=== PATIENT | male | born 1955 | race Caucasian/White ===

== ENCOUNTER 2021-02-16 12:23 | Inpatient (IN) ==
[2021-02-16] MEDS ORDERED: HYDROmorphone 1 MG/ML SYRINGE IV ONE ×2 (12:43→16:17)
[2021-02-16] MEDS ORDERED: ACETAMINOPHEN 1,000 MG/100 ML BAG IV ONE (12:44)
[2021-02-16 13:08] LABS: POC Creatinine 1.2 mg/dL (0.6-1.2)
--- NOTE | 2021-02-16 13:12 | Emergency Department Note ---
Male Urogenital HPI <Valentine Seals PA-C - Last Filed: 02/16/21 18:27> General Chief complaint: Abdominal Pain Stated complaint: Bilateral Flank Pain/Abd. pain Time Seen by Provider: 02/16/21 12:35 Source: patient Mode of arrival: ambulatory Limitations: no limitations History of Present Illness HPI Narrative: This is a 66-year-old male patient with a history of kidney stones who presented to our ER on 02/15/2021 for left CVA tenderness and pain. At that time he declined a CT of the abdomen pelvis and left AMA. Of note, his creatinine was 1.6, and he had a white blood cell count of 19,200 with a left shift. He was also noted to have an anion gap acidosis with an anion gap of 5.1. The patient is a diabetic, not on medications. Since then he is taken couple of hydrocodone and some Zofran for nausea, but the pain is been getting worse. It is now bilateral. He continues to have nausea, but is vomiting is controlled with Zofran. He denies F/C/S. He denies dysuria or hematuria. He endorses constipation has not had a bowel movement since Monday. For this reason he feels he is more bloated than usual. He denies abdominal pain. No previous abdominal surgeries. Related Data Home Medications Medication Instructions Recorded Confirmed ibuprofen 200 mg PO Q6H PRN 02/16/21 02/16/21 Allergies Allergy/AdvReac Type Severity Reaction Status Date / Time No Known Drug Allergies Allergy Verified 02/16/21 12:28 Review of Systems <Valentine Seals PA-C - Last Filed: 02/16/21 18:27> ROS ROS Narrative: Narrative: All systems ED: reviewed and negative except as stated. PFSH <Valentine Seals PA-C - Last Filed: 02/16/21 18:27> Narrative Patient History Narrative: Narrative: Medical/Surgical/Family History All Active Problems Pneumonia (Acute) Flank pain (Acute) Leukocytosis (Acute) Elevated lactic acid level (Acute) Hyperglycemia (Acute) Small bowel obstruction (Acute) Medical History Pneumonia Social History Smoking Status: Current some day smoker Alcohol Intake Frequency: does not drink Substance Use: does not use Exam <Valentine Seals PA-C - Last Filed: 02/16/21 18:27> Narrative Narrative: General: AOx3, NAD, nontoxic appearing. Pleasant and conversant. HEENT: PERRL, EOMI, normocephalic. Moist mucous membranes. Normal facies and normal dentition. Chest: Symmetric Respiratory: Lungs clear to auscultation bilaterally. No respiratory distress. Unlabored breathing. Heart: Regular rate and rhythm, no murmurs/clicks/rubs. Back: Left CVA tenderness Abdomen: Non-tender, distended, absent bowel tones. Extremities: Warm and well perfused. No edema. DP 2+ bilaterally. No venous stasis. Neuro: No focal deficits. Cranial nerves II-XII normal. Skin: Warm dry, no rashes or lesions, no cyanosis. Psych: Normal mood and affect Heme/Lymph: No abnormal bruising General Limitations: no limitations Course <Valentine Seals PA-C - Last Filed: 02/16/21 18:27> Course Course Narrative: 66-year-old male presents with plaints of CVA tenderness and abdominal pain Reevaluation(s) Reevaluation #1: CBC, CMP, UA, CT without contrast to query for kidney stone Reevaluation #2: CBC without leukocytosis, CMP with a creatinine that is normalized from 1.6 to 1.2. Lactic acid has normalized to 1.0. UA is bland without evidence of infectious markers. CT scan of the abdomen pelvis without contrast shows mechanical small bowel obstruction with collapse of the ileum, and there is stool noted in the colon. No masses, no free air and no fluid collections. No evidence of hydronephrosis or hydroureter, no kidney stones. I placed a call to general surgery to discuss admission. We currently do not have beds available here and Dr. Mariscal recommends admission, placement of NG tube and observation overnight. He also recommends starting antibiotics with broad-spectrum Zosyn. Will start to look for a bed locally in reach back out to Dr. Mariscal if 1 becomes available. Reevaluation #3: A bed is become available here at [facility]. I reached out to Dr. Mariscal who agrees to take the patient for admission. As stated above, he recommends NG tube placement and starting Zosyn, which has been done. Vital Signs Vital signs: Vital Signs Temperature 98.3 F 02/16/21 12:24 Pulse Rate 97 H 02/16/21 12:24 Respiratory Rate 18 02/16/21 12:24 Blood Pressure 164/103 02/16/21 12:24 Pulse Oximetry (%) 97 02/16/21 12:24 Temperature 97.7 F 02/17/21 16:00 Pulse Rate 61 02/17/21 16:00 Respiratory Rate 16 02/17/21 16:00 Blood Pressure 158/82 02/17/21 16:00 Pulse Oximetry (%) 97 02/17/21 16:00 MDM <Valentine Seals PA-C - Last Filed: 02/16/21 18:27> MDM Narrative Medical decision making narrative: Mechanical small bowel obstruction NG tube has been placed. Zosyn has been started. Patient is n.p.o. and bowel r est. He has been accepted for admission by Dr. Mariscal. Lab Data Result diagrams: 02/17/21 05:42 02/17/21 05:42 Labs: Lab Results 02/16/21 02/16/21 02/16/21 Range/Units 12:43 12:57 12:57 WBC 10.5 (4.5-11.0) K/mcL RBC 4.70 (4.63-6.08) M/mcL Hgb 14.8 (13.7-17.5) g/dL Hct 42.9 (40.1-51.0) % MCV 91.3 (80.0-100.0) fL MCH 31.5 (26.0-34.0) pg MCHC 34.5 (31.0-36.0) g/dL RDW 12.7 (11.5-14.5) % Plt Count 252 (140-440) K/mcL MPV 9.2 (7.4-10.4) fL Seg Neutrophils % 83 H (38-78) % Lymphocytes % 9 L (15-49) % Monocytes % (Manual) 7 (1-12) % Reactive Lymphocytes 1 (0-2) % Platelet Estimate Normal (Normal) RBC Morphology Normal (Normal) Sodium 137 (133-145) mmol/L Potassium 3.7 (3.3-5.1) mmol/L Chloride 103 (96-108) mmol/L Carbon Dioxide 20 L (22-30) mmol/L Anion Gap 14.0 (8.0-16.0) BUN 18 (8-23) mg/dL Creatinine 1.2 (0.7-1.2) mg/dL POC Creatinine 1.2 (0.6-1.2) mg/dL GFR Calculation 63 Glucose 114 H (70-105) mg/dL Calcium 9.7 (8.6-10.4) mg/dL Total Bilirubin 0.5 (0.1-1.0) mg/dL AST 17 (<40) U/L ALT 13 (<40) U/L Alkaline Phosphatase 94 (39-117) U/L Total Protein 7.2 (5.9-8.4) gm/dL Albumin 4.1 (3.2-5.2) gm/dL Globulin 3.1 (2.2-3.7) gm/dL Albumin/Globulin Ratio 1.3 (1.0-2.3) Urine Color Yellow Urine Appearance Clear (Clear) Urine pH 5.0 (5.0-9.0) Ur Specific Barron 1.015 (1.000-1.035) Urine Protein Negative (Negative) mg/dL Urine Glucose (UA) Negative (Negative) mg/dL Urine Ketones 5 A (Negative) mg/dL Urine Occult Blood Negative (Negative) mg/dL Urine Nitrate Negative (Negative) Urine Bilirubin Negative (Negative) mg/dL Urine Urobilinogen Negative mg/dL Ur Leukocyte Esterase Negative (Negative) /uL Urine RBC < 1 (0-3) /hpf Urine WBC 1 (0-4) /hpf Ur Squamous Epith Cells 0 (0-4) /hpf Urine Bacteria None (0) /hpf Urine Mucus Few A (None) /hpf Ur Culture Indicated? No Discharge Plan Patient/Caregiver Discharge Instructions Pt seen by YOUTH OFFICER/PA only: Yes Clinical Impression: Small bowel obstruction Patient Disposition: Xfer As Inpt ([facility]) Condition: Fair Discharge Date/Time: 02/16/21 19:43
[2021-02-16 13:56] LABS: Hematocrit 42.9 % (40.1-51.0); Hemoglobin 14.8 g/dL (13.7-17.5); Mean Cell Volume 91.3 fL (80.0-100.0); Mean Corpuscular HGB Conc 34.5 g/dL (31.0-36.0); Mean Platelet Volume 9.2 fL (7.4-10.4); Platelet Count 252 K/mcL (140-440); Red Cell Distribution Width 12.7 % (11.5-14.5); WBC 10.5 K/mcL (4.5-11.0)
[2021-02-16 13:56] LABS: Appearance,Urine CLEAR (Clear); Bilirubin,Urine Negative (Negative); Color,Urine YELLOW; Culture Indicated,Urine No; Glucose,Urine (UA) Negative (Negative); Ketones,Urine 5 mg/dL (Negative); Leukocyte Esterase,Urine Negative /uL (Negative); Mucus,Urine FEW /hpf; Nitrate,Urine Negative (Negative); Protein,Urine Negative (Negative); Specific Gravity,Urine 1.015 (1.000-1.035); Urine Blood Negative (Negative); Urine RBC < 1 /hpf (0-3); Urine Squamous Epithelial Cell 0 /hpf (0-4); Urine WBC 1 /hpf (0-4); Urobilinogen,Urine Negative
[2021-02-16 14:06] LABS: ALT/SGPT 13 U/L (<40); AST/SGOT 17 U/L (<40); Albumin 4.1 gm/dL (3.2-5.2); Albumin/Globulin Ratio 1.3 (1.0-2.3); Alkaline Phosphatase 94 U/L (39-117); Bilirubin,Total 0.5 mg/dL (0.1-1.0); Blood Urea Nitrogen 18 mg/dL (8-23); Calcium 9.7 mg/dL (8.6-10.4); Carbon Dioxide 20 mmol/L (22-30); Chloride 103 mmol/L (96-108); Globulin 3.1 gm/dL (2.2-3.7); Glomerular Filtration Rate 63; Glucose 114 mg/dL (70-105)
[2021-02-16 14:26] LABS: Lymphocytes % 9 % (15-49); Monocytes % (Manual) 7 % (1-12); Platelet Estimate NORMAL (Normal); RBC Morphology NORMAL (Normal); Reactive Lymphocytes 1 % (0-2); Segmented Neutrophils % 83 % (38-78)
--- NOTE | 2021-02-16 14:31 | Cat Scan Report ---
INDICATION: r/o kidney stone COMPARISON: Previous examination dated 05/27/2005 TECHNIQUE: Axial images were obtained through the abdomen and pelvis. Sagittally and coronally reformatted images. FINDINGS: Lung bases:Bilateral lower lobe parenchymal infiltrates there are linear densities consistent with atelectasis. Pneumonia is possible. Correlation with patient's covid test recommended. No pleural effusion. No pericardial effusion. Liver:Negative to the limits of noncontrast enhanced examination. Liver contour is smooth without evidence for cirrhosis Gallbladder, bilary:Probable gas containing gallstones. No gallbladder wall thickening. No pericholecystic fluid. Follow-up ultrasound may be helpful to exclude gallstones. No dilated bile ducts Spleen:No splenomegaly Pancreas:No pancreatic mass. No peripancreatic abnormality Adrenal glands:Negative Kidneys, ureters, bladder:No obstructing or nonobstructing renal calculi. There is no hydronephrosis. There is no hydroureter. No bladder calculi. There are bilateral renal masses most consistent with renal cysts. These have increased since previous examination. Gastrointestinal:Colon is negative. There is diverticulosis. No diverticulitis. No detectable colonic mass. There is dilated small bowel. Jejunum is dilated to proximal by 4.5 cm in diameter. Ashleigh contains fluid and gas. Distal ileum is collapsed. Appearance is consistent with mechanical small bowel obstruction. A definite transition point is not identified but appears to be in the left lower quadrant. There is no evidence for closed loop obstruction. There is no small bowel fecal material. No pneumoperitoneum or pneumatosis. There is no biliary or portal venous gas. Bowel wall perfusion is not well assessed without contrast material but there is no bowel wall thickening. There is minimal free pelvic fluid Appendix: The appendix is negative Vascular:There is calcification of the abdominal aorta. No abdominal aortic aneurysm. Celiac trunk and superior mesenteric artery are negative. Lymphatic:No retroperitoneal adenopathy. No significant mesenteric adenopathy. Mesentery, peritoneum:Minimal free fluid within the pelvis. No pneumoperitoneum. No intra-abdominal abscess. Reproductive:Prostate is within normal limits Musculoskeletal:Normal lumbar spine. Sacrum and pelvis are negative. No anterior abdominal wall or inguinal hernia. IMPRESSION: 1. Dilated gas and fluid-filled small bowel, predominantly jejunum. Appearance is consistent with mechanical small bowel obstruction 2. No closed-loop obstruction 3. No obstructing or nonobstructing renal or ureteral calculi. No hydronephrosis. There are benign renal cysts bilaterally 4. Vascular calcification. No abdominal aortic aneurysm 5. Bilateral lower lobe pulmonary parenchymal infiltrates. Recommend correlation with patient's covid test The exam was performed using radiation dose optimization techniques including, but not limited to, automated exposure control, adjustment of the mA and/or kV according to patient size and use of iterative reconstruction technique. Interpreted and Authenticated by: Patel Sherman 02/16/21
[2021-02-16] MEDS ORDERED: KETOROLAC 30 MG/ML VIAL IV ONE (16:17)
[2021-02-16] MEDS ORDERED: PIPERACILLIN SODIUM/TAZOBACTAM 3.375 GM in DEXTROSE 5% IN WATER 50 ML IV ONE (16:45)
--- NOTE | 2021-02-16 16:55 | XRay Report ---
INDICATION: POST NG PLACEMENT TECHNIQUE: Supine abdomen. COMPARISON: Previous CT scan dated 02/16/2021 FINDINGS:Esophagogastric tube with its tip in the proximal stomach. Sidehole of the catheter is at approximately the gastroesophageal junction Persistent dilated gas-filled small bowel consistent with mechanical small bowel obstruction. IMPRESSION: Nasogastric tube in the proximal stomach Interpreted and Authenticated by: Patel Sherman 02/16/21
[2021-02-16] MEDS ORDERED: ONDANSETRON 4 MG/2 ML VIAL IV PRN (18:47)
[2021-02-16] MEDS ORDERED: NALOXONE HCL 0.4 MG/ML VIAL IV PRN (18:47)
[2021-02-16] MEDS ORDERED: HYDROmorphone 1 MG/ML SYRINGE IV PRN (18:47)
--- NOTE | 2021-02-16 19:06 | General Surgery Consult Note ---
HPI Data of Consult Consult date: 02/16/21 Consult Narrative Patient Information: Note initiated : 02/16/21 at 4:45 Service Date, if different from initiated Date: [] Patient: Patel Huffman 66 y/o M admitted on for Bilateral Flank Pain/Abd. pain. Chief Complaint: [Small Bowel Obstruction] Mr Huffman is seen in consultation after returning back to the ER with increasing abdominal pain and distension. He is not passing gas or stool and has not been able to eat today. He has been ill and not feeling well for at least 3-4 days now. He vomited severely Monday but not since. CT scan has demonstrated evidence of an SBO and we are asked to see him in consultation. He denies any prior abdominal surgery and is in overall good health per his history. He has not had prior bowel obstruction and denies cardiopulmonary issues. He is not on any oral anticoagulants. He had a Colonoscopy many years ago but not since. He denies hernia or other issues. cc:: CC: Review of Systems All systems: reviewed and no additional remarkable complaints except as stated PFSH PFSH All Active Problems Pneumonia (Acute) Flank pain (Acute) Leukocytosis (Acute) Elevated lactic acid level (Acute) Hyperglycemia (Acute) Small bowel obstruction (Acute) Medical History Pneumonia Social History alcohol intake frequency: does not drink substance use type: does not use MEDS/ALLERGIES Home Medications and Allergies Home Medications Medication Instructions Recorded Confirmed Type azithromycin 250 mg tablet 0 PO Q24H #6 tab 07/04/17 07/04/17 Rx Allergies Allergy/AdvReac Type Severity Reaction Status Date / Time No Known Drug Allergies Allergy Verified 02/16/21 12:28 Physical Examination Vital Signs Vital signs: Temp Pulse Resp BP Pulse Ox 98.3 F 68 18 161/83 96 02/16/21 12:24 02/16/21 18:31 02/16/21 12:24 02/16/21 18:31 02/16/21 18:31 General physical appearance General physical exam: well developed and no distress Eyes Eye exam: normal ocular movement; negative icteric Head Head exam IM: Present atraumatic and normocephalic Neck Neck exam: trachea midline Cardiovascular Cardiovascular exam IM: Present normal rate and rhythm and RRR Respiratory Respiratory exam: normal respiratory effort Abdomen Abdomen: Present soft (belly is soft but fairly distended and non tender, no peritoneal findings and no hernias noted ) Genitourinary Genitourinary (Male): Present other (no CVA tenderness ) Integumentary Integumentary: Present other (intact, no lesions noted ) Neurologic Neurologic: Present other (grossly intact, fully alert and oriented ) Psychiatric Psychiatric: Present oriented to time, oriented to person, oriented to place and other (normal affect ) Results Labs Result diagrams: 02/16/21 12:57 02/16/21 12:57 Labs: Abnormal lab results 02/16/21 02/16/21 02/16/21 Range/Units 12:43 12:57 12:57 Seg Neutrophils % 83 H (38-78) % Lymphocytes % 9 L (15-49) % Carbon Dioxide 20 L (22-30) mmol/L Glucose 114 H (70-105) mg/dL Urine Ketones 5 A (Negative) mg/dL Urine Mucus Few A (None) /hpf Diabetes panel 02/16/21 Range/Units 12:57 Sodium 137 (133-145) mmol/L Potassium 3.7 (3.3-5.1) mmol/L Chloride 103 (96-108) mmol/L Carbon Dioxide 20 L (22-30) mmol/L BUN 18 (8-23) mg/dL Creatinine 1.2 (0.7-1.2) mg/dL Glucose 114 H (70-105) mg/dL Calcium 9.7 (8.6-10.4) mg/dL AST 17 (<40) U/L ALT 13 (<40) U/L Alkaline Phosphatase 94 (39-117) U/L Total Protein 7.2 (5.9-8.4) gm/dL Albumin 4.1 (3.2-5.2) gm/dL Calcium panel 02/16/21 Range/Units 12:57 Calcium 9.7 (8.6-10.4) mg/dL Albumin 4.1 (3.2-5.2) gm/dL Pituitary panel 02/16/21 Range/Units 12:57 Sodium 137 (133-145) mmol/L Potassium 3.7 (3.3-5.1) mmol/L Chloride 103 (96-108) mmol/L Carbon Dioxide 20 L (22-30) mmol/L BUN 18 (8-23) mg/dL Creatinine 1.2 (0.7-1.2) mg/dL Glucose 114 H (70-105) mg/dL Calcium 9.7 (8.6-10.4) mg/dL Adrenal panel 02/16/21 Range/Units 12:57 Sodium 137 (133-145) mmol/L Potassium 3.7 (3.3-5.1) mmol/L Chloride 103 (96-108) mmol/L Carbon Dioxide 20 L (22-30) mmol/L BUN 18 (8-23) mg/dL Creatinine 1.2 (0.7-1.2) mg/dL Glucose 114 H (70-105) mg/dL Calcium 9.7 (8.6-10.4) mg/dL Total Bilirubin 0.5 (0.1-1.0) mg/dL AST 17 (<40) U/L ALT 13 (<40) U/L Alkaline Phosphatase 94 (39-117) U/L Total Protein 7.2 (5.9-8.4) gm/dL Albumin 4.1 (3.2-5.2) gm/dL All other labs normal. A/P Assessment and plan (1) Small bowel obstruction: Status: Acute Narrative A/P Narrative: Small Bowel Obstruction Etiology in question with no history of prior surgery but no evidence of hernia or mass on CT or exam He appears reasonably well tonight and we will go ahead and manage him initially with bowel rest, NGT decompression, IV ABs, IVFs and observational mgmt. I've discussed the issues at length with he and his and they understand there is a chance he might require Surgery urgently in the coming days and that he will require hospitalization with close observation for now NGT decompression overnight with IVFs and re check lab work in the AM Time Spent With Patient Time: Total time spent is greater than 50% in coordination of care (as documented) at patient's floor/unit and/or counseling patient:
--- NOTE | 2021-02-16 19:37 | XRay Report ---
INDICATION: post advancement of NG tube TECHNIQUE: Supine abdomen. COMPARISON: Previous examination dated 02/16/2021 FINDINGS:Esophagogastric tube has been advanced. The sidehole is well below the gastroesophageal junction. Bowel gas pattern continues to be abnormal with distended gas-filled small bowel consistent with mechanical small bowel obstruction IMPRESSION: Esophagogastric tube has been advanced Interpreted and Authenticated by: Patel Sherman 02/16/21
[2021-02-16] MEDS: DEXTROSE 5%-NS 1,000 ML IV SCH (20:39)
[2021-02-16] MEDS: 0.9 % SODIUM CHLORIDE 10 ML SYRINGE IV SCH (20:39)
[2021-02-17] MEDS: PIPERACILLIN SODIUM/TAZOBACTAM 3.375 GM in DEXTROSE 5% IN WATER 50 ML IV SCH ×4 (00:09→21:51)
[2021-02-17] MEDS: DEXTROSE 5%-NS 1,000 ML IV SCH ×5 (03:32→21:52)
[2021-02-17] MEDS: 0.9 % SODIUM CHLORIDE 10 ML SYRINGE IV SCH ×3 (04:03→21:52)
[2021-02-17 06:55] LABS: Basophils # (Auto) 0.08 K/mcL (0.00-0.30); Eosinophils # (Auto) 0.32 K/mcL (0.00-0.70); Eosinophils % (Auto) 4.1 % (0.0-7.0); Hemoglobin 12.9 g/dL (13.7-17.5); Lymphocytes # (Auto) 1.66 K/mcL (1.50-4.80); Lymphocytes % (Auto) 21.2 % (15.5-49.0); Mean Corpuscular HGB Conc 33.1 g/dL (31.0-36.0); Mean Platelet Volume 9.1 fL (7.4-10.4); Monocytes # (Auto) 0.79 K/mcL (0.10-0.90); Monocytes % (Auto) 10.1 % (1.0-12.0); Neutrophils % (Auto) 63.6 % (38.0-78.0); Platelet Count 213 K/mcL (140-440); RBC 4.15 M/mcL (4.63-6.08); Red Cell Distribution Width 12.7 % (11.5-14.5); WBC 7.8 K/mcL (4.5-11.0)
[2021-02-17 07:20] LABS: Blood Urea Nitrogen 17 mg/dL (8-23); Calcium 8.7 mg/dL (8.6-10.4); Carbon Dioxide 23 mmol/L (22-30); Chloride 104 mmol/L (96-108); Glomerular Filtration Rate 63; Glucose 119 mg/dL (70-105)
--- NOTE | 2021-02-17 09:06 | General Surgery Progress Note ---
SUBJECTIVE Subjective Patient information: Note initiated : 02/17/21 at 8:59 am Service Date, if different from initiated Date: [] Patient: Patel Huffman 66 y/o M admitted on 02/16/21 for Bilateral Flank Pain/Abd. pain. Chief Complaint: [Small Bowel Obstruction] He feels much improved this am and denies any additional abdominal pain at this time. He is passing substantial amounts of gas and feels he might have a BM. Constitutional Vitals: Vital Signs Temp Pulse Resp BP Pulse Ox 97.3 F 64 16 148/81 94 02/17/21 07:21 02/17/21 07:21 02/17/21 07:21 02/17/21 07:21 02/17/21 07:21 Period Temp Pulse Resp BP Sys/More Pulse Ox Last 24 Hr 97.3 F-98.3 F 61-97 16-18 135-186/80-124 94-97 Intake and Output 02/16/21 02/17/21 02/17/21 21:59 05:59 13:59 Intake Total 150 1100 Output Total 250 1120 Balance -100 -20 Weight 195 lb Intake & Output: Intake & Output 02/16/21 02/17/21 02/17/21 21:59 05:59 13:59 Intake Total 150 1100 Output Total 250 1120 Balance -100 -20 Weight 195 lb Intake: IV 150 1100 Dextrose 5%-Ns IV Solution 1, 1000 000 ml @ 150 mls/hr IV .Q6H40M EREN Rx#:[id number] Zosyn 3.375 gm In Dextrose 5% 50 100 in Water 50 ml @ 100 mls/hr IV Q8H EREN Rx#:[id number] Output: Gastric Drainage 250 650 NG/OG 650 Right Nare 250 Void Amount 470 Other: Urine Color Dark Yellow General appearance: cooperative and no acute distress Head Head exam: Present atraumatic and normocephalic Respiratory Respiratory exam: Absent respiratory distress Additional comments: normal appearing respirations Cardiovascular Cardiovascular exam: Present normal rate and rhythm and RRR GI/Abdominal Additional comments: belly is much softer today and less distended, non tender, NGT in place and functional Extremities Exam Additional comments: appear well perfused Neurological Exam Neurological exam: Present oriented X3 Psychiatric Psychiatric exam: Present normal affect A/P Assessment and plan (1) Small bowel obstruction: Status: Acute Narrative A/P Narrative: HD #2 Small Bowel Obstruction Etiology uncertain but likely some sort of intrinsic adhesion He seems far less acute today and looks clinically improved. For now, we will continue IVF and NGT decompression with bowel rest - if he continues to show evidence of resolution, then will likely go ahead with a SBFT prior to consideration of NGT removal and initiation of a diet Issues reviewed at length with he and his Time Spent With Patient Time: Total time spent is greater than 50% in coordination of care (as documented) at patient's floor/unit and/or counseling patient:
[2021-02-18] MEDS: DEXTROSE 5%-NS 1,000 ML IV SCH ×2 (02:29→09:49)
[2021-02-18] MEDS: PIPERACILLIN SODIUM/TAZOBACTAM 3.375 GM in DEXTROSE 5% IN WATER 50 ML IV SCH ×3 (05:29→21:58)
[2021-02-18] MEDS: 0.9 % SODIUM CHLORIDE 10 ML SYRINGE IV SCH ×3 (05:30→21:59)
--- NOTE | 2021-02-18 06:51 | XRay Report ---
INDICATION: evaluate SBO TECHNIQUE: Supine and upright abdomen. COMPARISON: Previous examinations dated 02/16/2021 FINDINGS:There is an esophagogastric tube with its tip in the gastric antrum. Bowel gas pattern is markedly improved. Dilated gas-filled small bowel has resolved. There is gas within the colon. Appearance is consistent with resolution of mechanical small bowel obstruction. IMPRESSION: 1. Markedly improved bowel gas pattern 2. Bowel gas pattern is presently unremarkable without evidence for significant residual small bowel obstruction Interpreted and Authenticated by: Patel Sherman 02/18/21
[2021-02-18 06:57] LABS: Hematocrit 37.6 % (40.1-51.0); Hemoglobin 12.7 g/dL (13.7-17.5); Mean Cell Volume 93.1 fL (80.0-100.0); Mean Corpuscular HGB Conc 33.8 g/dL (31.0-36.0); Mean Platelet Volume 9.2 fL (7.4-10.4); Platelet Count 214 K/mcL (140-440); RBC 4.04 M/mcL (4.63-6.08); Red Cell Distribution Width 12.1 % (11.5-14.5); WBC 6.5 K/mcL (4.5-11.0)
[2021-02-18 07:34] LABS: Blood Urea Nitrogen 9 mg/dL (8-23); Calcium 8.8 mg/dL (8.6-10.4); Carbon Dioxide 25 mmol/L (22-30); Chloride 105 mmol/L (96-108); Glomerular Filtration Rate 70; Glucose 117 mg/dL (70-105)
--- NOTE | 2021-02-18 09:50 | General Surgery Progress Note ---
SUBJECTIVE Subjective Patient information: Note initiated : 02/18/21 at 9:46 am Service Date, if different from initiated Date: [] Patient: Patel Huffman 66 y/o M admitted on 02/16/21 for Bilateral Flank Pain/Abd. pain. Chief Complaint: [HD #3 SBO] Continues to feel much improved with resolution of abdominal pain - now passing gas and having large volume stools Constitutional Vitals: Vital Signs Temp Pulse Resp BP Pulse Ox 96.9 F L 65 18 151/78 95 02/18/21 07:43 02/18/21 07:43 02/18/21 07:43 02/18/21 07:43 02/18/21 07:43 Period Temp Pulse Resp BP Sys/More Pulse Ox Last 24 Hr 96.9 F-98.3 F 58-65 16-20 151-170/74-82 95-97 Intake and Output 02/17/21 02/18/21 02/18/21 21:59 05:59 13:59 Intake Total 1170 1550 50 Output Total 1500 2150 300 Balance -330 -600 -250 Weight 197 lb 8 oz Intake & Output: Intake & Output 02/17/21 02/18/21 02/18/21 21:59 05:59 13:59 Intake Total 1170 1550 50 Output Total 1500 2150 300 Balance -330 -600 -250 Weight 197 lb 8 oz Intake: IV 1050 1050 50 Dextrose 5%-Ns IV Solution 1, 1000 1000 000 ml @ 150 mls/hr IV .Q6H40M EREN Rx#:[id number] Zosyn 3.375 gm In Dextrose 5% 50 50 50 in Water 50 ml @ 100 mls/hr IV Q8H EREN Rx#:[id number] Oral 120 500 Output: Gastric Drainage 750 1750 NG/OG 750 1750 Void Amount 750 400 300 Other: Meal Nourishment/Supplement Stool Size Moderate # Bowel Movements 1 General appearance: cooperative and no acute distress Head Head exam: Present atraumatic and normocephalic Respiratory Respiratory exam: Absent respiratory distress Additional comments: normal respiration Cardiovascular Cardiovascular exam: Present RRR Neurological Exam Neurological exam: Present oriented X3 Psychiatric Psychiatric exam: Present normal affect A/P Narrative A/P Narrative: Resolving SBO Will check SBFT today to assure unimpeded transit to colon If SBFT normal, then will remove NGT and start clears Time Spent With Patient Time: Total time spent is greater than 50% in coordination of care (as documented) at patient's floor/unit and/or counseling patient:
[2021-02-18] MEDS ORDERED: DIATRIZOATE MEGLU/DIATRIZO SOD 120 ML BOTTLE PO ONE (11:03)
--- NOTE | 2021-02-18 13:49 | XRay Report ---
INDICATION: evaluate for SB transit time to colon, ? SBO TECHNIQUE: Routine Gastrografin small bowel study COMPARISON: Previous abdominal CT scan dated 02/16/2021. Previous plain film examination dated 02/16/2021 and 02/18/2021 FINDINGS: Gastrografin was placed into the stomach via nasogastric tube Stomach appears normal. Small bowel is dilated and measures approximately 3.5 cm in cross-sectional diameter. Despite this dilatation there is normal small bowel transit time. There is contrast material within the ascending colon by one hour and 15 minutes postingestion. There is no transition point. No evidence for significant mechanical small bowel obstruction. IMPRESSION: 1. Resolution of mechanical small bowel obstruction. Normal small bowel transit time 2. Persistent dilatation of small bowel. Small bowel measures 3.5 cm maximally Interpreted and Authenticated by: Patel Sherman 02/18/21
[2021-02-18] MEDS: DEXTROSE 5%-1/2NS W/20MEQ KCL 1,000 ML IV SCH (14:41)
[2021-02-19] MEDS: PIPERACILLIN SODIUM/TAZOBACTAM 3.375 GM in DEXTROSE 5% IN WATER 50 ML IV SCH ×2 (05:40→13:33)
[2021-02-19] MEDS: DEXTROSE 5%-1/2NS W/20MEQ KCL 1,000 ML IV SCH (05:40)
[2021-02-19] MEDS: 0.9 % SODIUM CHLORIDE 10 ML SYRINGE IV SCH ×2 (05:40→13:33)
[2021-02-19 06:53] LABS: Hematocrit 37.2 % (40.1-51.0); Hemoglobin 12.6 g/dL (13.7-17.5); Mean Cell Volume 92.8 fL (80.0-100.0); Mean Corpuscular HGB Conc 33.9 g/dL (31.0-36.0); Mean Platelet Volume 9.3 fL (7.4-10.4); Platelet Count 220 K/mcL (140-440); RBC 4.01 M/mcL (4.63-6.08); Red Cell Distribution Width 12.5 % (11.5-14.5); WBC 6.2 K/mcL (4.5-11.0)
[2021-02-19 07:14] LABS: Blood Urea Nitrogen 9 mg/dL (8-23); Calcium 9.1 mg/dL (8.6-10.4); Carbon Dioxide 22 mmol/L (22-30); Chloride 106 mmol/L (96-108); Glomerular Filtration Rate 70; Glucose 105 mg/dL (70-105)
--- NOTE | 2021-02-19 09:57 | General Surgery Progress Note ---
SUBJECTIVE Subjective Patient information: Note initiated : 02/19/21 at 9:54 am Service Date, if different from initiated Date: [] Patient: Patel Huffman 66 y/o M admitted on 02/16/21 for Bilateral Flank Pain/Abd. pain. Chief Complaint: [SBO] Continues to feel much better than on arrival. Passing gas and stool now without issue. No abdominal pain. Constitutional Vitals: Vital Signs Temp Pulse Resp BP Pulse Ox 97.4 F 65 16 154/83 96 02/19/21 07:07 02/19/21 07:07 02/19/21 07:07 02/19/21 07:07 02/19/21 07:07 Period Temp Pulse Resp BP Sys/More Pulse Ox Last 24 Hr 96.6 F-98.3 F 50-65 16-18 140-165/68-83 94-98 Intake and Output 02/18/21 02/19/21 02/19/21 21:59 05:59 13:59 Intake Total 900 1550 50 Output Total 600 Balance 300 1550 50 Weight 199 lb 8 oz Intake & Output: Intake & Output 02/18/21 02/19/21 02/19/21 21:59 05:59 13:59 Intake Total 900 1550 50 Output Total 600 Balance 300 1550 50 Weight 199 lb 8 oz Intake: IV 450 1050 50 Dextrose 5%-1/2Ns W/20Meq KCl 1 1000 ,000 ml @ 75 mls/hr IV .[id number] EREN Rx#:[id number] Dextrose 5%-Ns IV Solution 1, 400 000 ml @ 150 mls/hr IV .[id number] EREN Rx#:[id number] Zosyn 3.375 gm In Dextrose 5% 50 50 50 in Water 50 ml @ 100 mls/hr IV Q8H EREN Rx#:[id number] Oral 450 500 Output: Gastric Drainage 400 NG/OG 400 Void Amount 200 Other: Meal Dinner Breakfast Percent of Meal Consumed jello cup Feeding Ability Independent Urine Color Bright Yellow Stool Size Small Stool Consistency Loose # Voids 2 1 # Bowel Movements 2 1 General appearance: no acute distress Head Head exam: Present atraumatic and normocephalic Eye Eye exam: Present normal appearance Respiratory Respiratory exam: Present normal respiratory exam Cardiovascular Cardiovascular exam: Present RRR GI/Abdominal Additional comments: soft and non tender, non distended, no mass Extremities Exam Additional comments: normal appearing extremities A/P Narrative A/P Narrative: Resolved SBO Advance to regular diet Saline Lock IVF Home later today if tolerating regular orals without issue Time Spent With Patient Time: Total time spent is greater than 50% in coordination of care (as documented) at patient's floor/unit and/or counseling patient:
--- NOTE | 2021-03-01 09:16 | Discharge Summary ---
DATE OF ADMISSION: 02/16/2021 DATE OF DISCHARGE: 02/19/2021 ADMITTING DIAGNOSIS: Small bowel obstruction. DISCHARGE DIAGNOSIS: Resolved small bowel obstruction. ADMITTING PHYSICIAN: Lalit Mariscal MD PROCEDURE: Small bowel followthrough. INDICATIONS: The patient is a 66-year-old male who presented to the Emergency Room on 02/16/2021 with clinical and radiographic findings consistent with a fairly high-grade small bowel obstruction. He was seen in the Emergency Room. He did not meet any definitive criteria for emergency surgery. I admitted him for inpatient observational care. HOSPITAL COURSE: Patient was admitted on 02/16/2021. An NG tube was placed. He was aggressively resuscitated with IV fluids and kept on bowel rest. He responded quite well to initial management measures. His white count decreased and his abdominal distention became markedly diminished and he had far less abdominal pain within the first 12-24 hours of decompression. He was also placed on IV antibiotics as there was some speculation that he might have a pneumonia based on imaging, and he has had a markedly elevated white count in the days leading up to this admission. He looked very good clinically and over the next 24-48 hours continued to resolve and started to pass gas on a regular basis without issue. We then went ahead and performed a gastric small bowel followthrough on 02/18/2021 that demonstrated normal transit time of the contrast of the colon without any evidence of obstruction, although he still had some moderately extended small bowel at this point, though with no evidence of focal obstruction. At this point, his NG tube was removed. He was placed on clear liquids and did very well by the following day. On 02/19/2021 he was felt ready for discharge. DISPOSITION: Home with clinic followup. IN-HOSPITAL COMPLICATIONS: None. [email or web address] Job ID: [id number] Doc ID: [id number] Lalit Mariscal M.D.
== END 2021-02-19 13:40 | disposition home or self-care (01) | DRG 388 ==
LOC: ED 12:23 → MEDSUR 19:38
PROVIDERS: ADMIT Surgery Surgical Critical Care; ATTEND Surgery Surgical Critical Care